=== PATIENT | female | born 1965 | race Caucasian/White ===

== ENCOUNTER 2017-08-12 15:21 | Emergency (ER) | payer BC ==
[2017-08-12 15:44] VITALS: BP 128/71
--- NOTE | 2017-08-12 15:47 | UC ---
Complaint Female HPI - HPI Summary HPI Summary: 51 yo female presents with urinary burning and frequency since yesterday morning. Also, 3 days ago had a lot of vaginal itching and thought she had a yeast infection - so she used OTC monistat, but had no relief. Denies fever, chills, abdominal pain, n/v. - History Of Current Complaint Chief Complaint: UCGU Stated Complaint: POSS UTI Time Seen by Provider: 08/12/17 15:47 Hx Obtained From: Patient Hx Last Menstrual Period: IUD Onset/Duration: Gradual Onset Timing: Constant Severity Initially: Mild Severity Currently: Mild Pain Intensity: 4 Pain Scale Used: 0-10 Numeric - Allergies/Home Medications Allergies/Adverse Reactions: Allergies Allergy/AdvReac Type Severity Reaction Status Date / Time No Known Allergies Allergy Verified 08/12/17 15:45 Home Medications: Home Medications Cetirizine* [ZyrTEC 10 MG TAB*] 10 mg PO DAILY 08/12/17 [History Confirmed 08/12] Multivitamin [Multivitamins] 1 cap PO DAILY 08/12/17 [History Confirmed 08/12/17 ] [place]-3 Fatty Acids/Fish Oil [Fish Oil 1,000 mg Capsule] 1 each PO DAILY [History Confirmed 08/12/17] buPROPion TAB* [Wellbutrin TAB*] 100 mg PO DAILY 08/12/17 [History Confirmed ] PMH/Surg Hx/FS Hx/Imm Hx Psychological History: Anxiety - Surgical History Surgical History: None - Family History Known Family History: Positive: None - Social History Occupation: Employed Full-time Lives: With Family Alcohol Use: Rare Substance Use Type: None Smoking Status (MU): Former Smoker When Did the Patient Quit Smoking/Using Tobacco: 1992 Review of Systems Constitutional: Negative Skin: Negative Respiratory: Negative Cardiovascular: Negative Gastrointestinal: Negative Genitourinary: Dysuria, Frequency, Vaginal/Penile Discharge Neurovascular: Negative Neurological: Negative Psychological: Negative All Other Systems Reviewed And Are Negative: Yes Physical Exam - Summary Physical Exam Summary: GENERAL: NAD. WDWN. No pain distress. SKIN: No rashes, sores, lesions, or open wounds. NECK: Supple. Nontender. No lymphadenopathy. CHEST: CTAB. No r/r/w. No accessory muscle use. Breathing comfortably and in no distress. CV: RRR. Without m/r/g. Pulses intact. Brisk cap refill. ABDOMEN: Soft. NTTP. No distention or guarding. No organomegaly. No CVA tenderness. Bowel sounds present NEURO: Alert. CN II-XII grossly intact. PSYCH: Age appropriate behavior. Triage Information Reviewed: Yes Vital Signs: Initial Vital Signs Temp 96.5 F 08/12/17 15:40 Pulse 61 08/12/17 15:40 Resp 16 08/12/17 15:40 BP 128/71 08/12/17 15:40 Pulse Ox 100 08/12/17 15:40 Laboratory Tests 08/12/17 15:53 POC Urine Color Yellow POC Urine Clarity Clear POC Urine pH 6.5 POC Ur Specif [place] 1.015 POC Urine Protein Negative POC Ur Glucose (UA) Negative POC Urine Ketones Negative POC Urine Blood Negative POC Urine Nitrite Negative POC Urine Bilirubin Negative POC Urine Urobilinogen 0.2 POC U Leukocyte Esteras 1+ A Pelvic Exam: Positive: External Exam Normal, No Cerv. Motion Tender, No Masses, Discharge - Moderately thick white, Other - Assisted by Mara HOGUE. Negative: Active Bleeding, Lesions, Tender w/ Cervical Motion Complaint Female Dx - Course Course Of Treatment: Given UA with only 1+ leuks, exam, and pt subjectively feeling that she has a yeast infection over a UTI - will hold treatment for UTI and treat for her likely yeast infection with diflucan. If urine culture returns with bacteria - will treat with anbx. Culture obtained for affirm today as well. - Differential Dx/Diagnosis Provider Diagnoses: Vaginal yeast infection Discharge - Sign-Out/Discharge Documenting (check all that apply): Discharge/Admit/Transfer - Discharge Plan Condition: Stable Disposition: HOME Prescriptions: Fluconazole 150 MG (NF) [Diflucan 150 mg (NF)] 150 mg PO ONCE #2 tab Patient Education Materials: Yeast Infection (ED) Referrals: Glenna Tellez NP [Primary Care Provider] - Additional Instructions: If you develop a fever, shortness of breath, chest pain, new or worsening symptoms - please call your PCP or go to the ED. 1) If you have not heard about your urine results by Friday - please call our clinic and ask - Billing Disposition and Condition Condition: STABLE Disposition: Home
--- NOTE | 2017-08-14 19:32 | UC ---
- Progress Note Progress Note: 08/14/2017 Pt Dx w/ Vaginal Candidisis and Rx fluconazol PO Affirm Negative for BV and Neisha Urine culture: no growth No change Lisandra Ward PA-C Discharge - Sign-Out/Discharge Documenting (check all that apply): Discharge/Admit/Transfer - D/C home - Discharge Plan Condition: Stable Disposition: HOME Prescriptions: Fluconazole 150 MG (NF) [Diflucan 150 mg (NF)] 150 mg PO ONCE #2 tab Patient Education Materials: Yeast Infection (ED) Referrals: Glenna Tellez NP [Primary Care Provider] - Additional Instructions: If you develop a fever, shortness of breath, chest pain, new or worsening symptoms - please call your PCP or go to the ED. 1) If you have not heard about your urine results by Friday - please call our clinic and ask - Billing Disposition and Condition Condition: STABLE Disposition: Home
== END 2017-08-12 16:24 | disposition home or self-care (01) ==
LOC: UCEAST 15:21
DX: B37.3 Candidiasis of vulva and vagina (principal); F41.9 Anxiety disorder, unspecified; Z87.891 Personal history of nicotine dependence
CPT/HCPCS: 81003; 87086; 87480; 87510; 99212; G0463